=== PATIENT | female | born 1970 | race Caucasian/White ===

== ENCOUNTER 2021-02-25 09:00 | Outpatient (RCR) | payer MEDICARE, MEDICAID, SELFPAY ==
--- NOTE | 2021-01-19 11:31 | HP.PTEVAL ---
Patient's Visit Information BRENT CHAUHAN is a 50 year old F referred to Physical Therapy by CHUYITA Hairston with a diagnosis of LOW BACK PAIN ,CERVICAL PAIN WITH RADICULOPATHY LEFT ARM,LATERAL EPICONDYL. Date of Evaluation: 01/19/21 Physical Therapist: Roger Sanchez, PT, Cert MDT, OCS - Visit Plan Frequency: 2x /Week Duration: 4 Weeks Plan: PT INTERVETION CERVICAL /POSTURAL EX'S,LEFT WRIST STRERTCHING AND STENGTHENING,DLS ABD/BACK ,US /CP - Subjective This 50 female presents to physical therapy and cervical pain with radiculopathy. Patient has had lumbar pain~ years and cervical pain with left arm pain~ 2months. Symptoms result insidious onset no mechanism of injury. Location of back pain is symmetrical described as sharp pain. Symptoms worse with bending, lifting ,sitting or standing for extended period of time. Alleviating factors rest ,heat. Coughing/sneezing -. Bowel/bladder -. Patient able sleeping fine, No abnormal night pain. Cervical pain symmetrical with radicular symptoms left arm to hand. Aggravating factors lifting ,arm [place] ,driving. Alleviating factors heat. Denies BENITEZ ,but does get occasional migraines . Denies tinnitus/nausea. Patient able to sleep. Initially, seen Family DR who did x-rays cervical/lumbar. Provided gabapentin. Patient symptoms affects QOL and function,. SOCIAL: single 4 kids. VOCATION: disablity - Pain Bilateral Back Pain Intensity (Out of 10): 8 Pain Intensity Range: 10 Bilateral Neck Pain Intensity (Out of 10): 8 Pain Intensity Range: 10 - Objective POSTURE: mild forward posture head rounded shoulders. PALPATION: tender UT/levator, left lateral epicondyle. NEURO: denies paresthesia/tingling ,reflexes C5-6-7,L3-4,L4-5,L5-S1 2/3. SYMMTRIES : align. GAIT: reciprocal pattern. BUE AROM: WFL. MMT: BUE 4/5 biceps/triceps/except left shoulder 3+/5 ,wrist flexion /extensors 4-/5,supinator/pronators 4-/5. 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 CERVICAL ROM: flexion min loss lateral flexion/rotation mod loss, extension mod/severe loss. MMT: QUADS/HAMS/ANKL E4/5,HIP FLEXION 4-5/5. LUMBAR ROM: flexion mod loss, extension mod loss, side glides mod loss. FLEXABILITY: hamstrings min tight - Special Tests C/S Radiculapathy - Left Upper limb tension test: Negative C/S Radiculapathy - Right Upper limb tension test: Negative C/S Radiculapathy - Left Sp[place]: Negative C/S Radiculapathy - Right [place]: Negative C/S Radiculapathy - Left Cervical distraction: Negative C/S Radiculapathy - Right Cervical distraction: Negative C/S Radiculapathy - Left Relief test: Negative C/S Radiculapathy - Right Relief test: Negative C/S Radiculapathy - Valsalva: Negative Sharp Alyssa: Negative Vertebral Artery Test: Negative Alar Ligament Test: Negative Cervical Sitting: Protrusion - Mechanical Response: No effect Cervical Sitting: Protrusion - Symptoms During Testing: Increases Cervical Sitting: Protrusion - Symptoms After Testing: No worse Cervical Sitting: Retraction - Mechanical Response: No effect Cervical Sitting: Retraction - Symptoms During Testing: Decreases Cervical Sitting: Retraction - Symptoms After Testing: No better L/S Slump test left side: Negative L/S Slump test right side: Negative L/S Left Straight Leg Raise: Negative L/S Right Straight Leg Raise: Negative Lumbar Standing: Flexion - Mechanical Response: No effect Lumbar Standing: Flexion - Symptoms During Testing: Increases Lumbar Standing: Flexion - Symptoms After Testing: No worse Lumbar Standing: Extension - Mechanical Response: No effect Lumbar Standing: Extension - Symptoms During Testing: Increases Lumbar Standing: Extension - Symptoms After Testing: No worse Lumbar Standing: Right Side Glides - Mechanical Response: No effect Lumbar Standing: Right Side [place] - Symptoms During Testing: No effect Lumbar Standing: Right Side [place] - Symptoms After Testing: No effect Lumbar Standing: Left Side [place] - Mechanical Response: No effect Lumbar Standing: Left Side [place] - Symptoms During Testing: No effect Lumbar Standing: Left Side [place] - Symptoms After Testing: No effect L Elbow Lat Epiconylitis - as named: Negative - Balance/Special Test Scores Oswestry Neck Score: 21 - Goals Goal 1:: I with HEP FOR BACK and NECK Goal Time Frame: 4-6 Weeks Goal 2:: Improve posture for ADLS' Goal Time Frame: 4-6 Weeks Goal 3:: Decrease lumbar and neck pain with left arm by 50% improvement to improve function Goal Time Frame: 4-6 Weeks Goal 4:: Patient to improve lumbar and cervical ROM for function of recovery Goal Time Frame: 4-6 Weeks Goal 5:: Patient to improve neck owstry score by 5 points or > to improve function Goal Time Frame: 4-6 Weeks Goal 6:: Patient increase left wrist strength 4/5 to product picker things for ADLS Goal Time Frame: 4-6 Weeks - Rehabilitation Potential Physical Therapy Diagnosis: This patient has neck and lumbar pain with position test movement along with decrease posture ,weakness and lateral epicondylitis with pain and tender thus benefit from skilled PT Rehabilitation Potential: Good - Anticipated Interventions Patient/Client Instruction: Educate patient on: Condition For the Purpose of:: To decrease pain, To increase ROM, To improve muscle performance and motor function, To improve ability to perform ADL's, To increase tolerance to activity/condition/position, To improve ability of physical actions for home/community/work/leisure, To improve health of tissue, To decrease soft tissue restriction, To increase flexibility/ROM, To assume or resume ADL's, To reduce risk of recurrence Therapeutic Exercise to Include: Strength training, Body mechanics, Postural training, Flexibilty training, Active ROM, Dynamic Lumbar Stabilization, Shilpa Exercises Comment: WRIST ,UE/LE For the Purpose of:: To decrease pain, To increase ROM, To improve muscle performance and motor function, To increase tolerance to activity/condition/position, To improve performance and independence with ADL's, To improve ability of physical actions for home/community/work/leisure, To improve health of tissue, To decrease soft tissue restriction, To increase flexibility/ROM, To improve health and function Cryotherapy (ice pack, ice massage): Yes Ultrasound (thermal/non thermal): Yes For the Purpose of:: To decrease pain, To decrease swelling/inflammation Thank you for the opportunity to evaluate your patient. For Medicare and Medicare HMO plans, please review the plan of care and approve it. It will need to be FAXED BACK to us at [phone] for Medicare purposes. For Medicare only, by signing this I certify the plan of care. Please let me know if there are questions or concerns regarding this plan of care. Physician Signature: Date:
--- NOTE | 2021-03-25 08:51 | HP.PT.NRP ---
BRENT CHAUHAN was seen in my office for initial evaluation on 01/19/21. The following Plan of Care was established for this patient: Initial Frequency: 2x /Week Initial Duration: 4 Weeks Patient/Client Instruction: Educate patient on: Condition For the Purpose of:: To decrease pain, To increase ROM, To improve muscle performance and motor function, To improve ability to perform ADL's, To increase tolerance to activity/condition/position, To improve ability of physical actions for home/community/work/leisure, To improve health of tissue, To decrease soft tissue restriction, To increase flexibility/ROM, To assume or resume ADL's, To reduce risk of recurrence Therapeutic Exercise to Include: Strength training, Body mechanics, Postural training, Flexibilty training, Active ROM, Dynamic Lumbar Stabilization, Shilpa Exercises For the Purpose of:: To decrease pain, To increase ROM, To improve muscle performance and motor function, To increase tolerance to activity/condition/position, To improve performance and independence with ADL's, To improve ability of physical actions for home/community/work/leisure, To improve health of tissue, To decrease soft tissue restriction, To increase flexibility/ROM, To improve health and function Cryotherapy (ice pack, ice massage): Yes Ultrasound (thermal/non thermal): Yes For the Purpose of:: To decrease pain, To decrease swelling/inflammation This patient was last seen in our office . Pertinent comments regarding their Physical therapy will appear below: Patient seen for PT for cervical pain ,elbow pain for postural ex's, strengthening/DLS and modalities thus is d/c. At this point I will be discontinuing this patient from physical therapy. I would be happy to see this patient again in the future if found appropriate by the physician. Thank you! Roger Sanchez, PT, Cert MDT, OCS Balance/Gait/Functional tests - Balance/Special Test Scores Oswestry Neck Score: 3
== END 2021-02-25 19:00 | disposition home or self-care (01) ==
LOC: PT 09:00
PROVIDERS: PCP Nurse Practitioner Family
DX: M54.50 Low back pain, unspecified (principal); M54.12 Radiculopathy, cervical region; M77.10 Lateral epicondylitis, unspecified elbow
CPT/HCPCS: 97035; 97110; 97162

== ENCOUNTER 2021-04-30 07:17 | Outpatient (CLI) | payer MEDICARE, MEDICAID, SELFPAY ==
--- NOTE | 2021-04-30 07:18 | MRI_ITS ---
STUDY: MR Spine Lumbar W/O Contrast 04/30/2021 11:12 AM REASON FOR EXAM: Female, 50 years old. Back pain DDD lumbar spine, LOW BACK PAIN TECHNIQUE: MR Spine Lumbar W/O Contrast Standardized fat and water weighted pulse sequences were obtained. COMPARISON: xr 1.31.22 FINDINGS: T12-L1: Normal endplates. Normal disc height, hydration and morphology. Normal bilateral facet joints. Normal central canal and bilateral lateral recesses. Normal bilateral intervertebral neural foramina. Normal lumbar lordosis. There is no substantial scoliosis. Normal conus medullaris that terminates at the L1. T12 and L1 vertebral body hemangioma. L1-2: Normal endplates. Normal disc height and morphology. Normal central canal and intervertebral neuroforamina. L2-3: Normal endplates. Normal disc height, hydration and morphology. Normal bilateral facet joints. Normal central canal and bilateral lateral recesses. Normal bilateral intervertebral neural foramina. L3-4: Normal endplates. Normal disc height, hydration and morphology. Normal bilateral facet joints. Normal central canal and bilateral lateral recesses. Normal bilateral intervertebral neural foramina. L4-5: Normal endplates. Normal disc height and morphology. Normal central canal and intervertebral neuroforamina. L5-S1: Normal endplates. Normal disc height and morphology. Normal central canal and intervertebral neuroforamina. Normal visualized sacral ala. Normal visualized paraspinous soft tissue structures. MRI/Spine Lumbar (Routine) IMPRESSION: There are no acute findings. Electronically Signed: Kem Navarro MD at 11:45 EST ,
== END 2021-04-30 23:59 | disposition home or self-care (01) ==
PROVIDERS: PCP Nurse Practitioner Family; Referring Provider Orthopaedic Surgery; Visit Provider Orthopaedic Surgery
DX: M51.36 Other intervertebral disc degeneration, lumbar region (principal)
CPT/HCPCS: 72148